=== PATIENT | female | born 1925 | race Caucasian/White ===

== ENCOUNTER 2017-06-09 17:29 | Emergency (ER) | payer OTHER ==
[~2017-06-09] VITALS: Ht 157.5 cm; Wt 67.1 kg
[2017-06-09 17:55] VITALS: BP_SYST 155
[2017-06-09 19:10] VITALS: BP_SYST 127
== END 2017-06-09 20:44 | disposition home or self-care (01) ==
LOC: SED 17:29
DX: S40.011A Contusion of right shoulder, initial encounter (principal); W01.0XXA Fall on same level from slipping, tripping and stumbling without subsequent striking against object, initial encounter; Y93.89 Activity, other specified; Y92.89 Other specified places as the place of occurrence of the external cause; Y99.8 Other external cause status
CPT/HCPCS: 70450-TC; 73030; 99284

== ENCOUNTER 2017-07-24 08:04 | Emergency (ER) | payer OTHER ==
[~2017-07-24] VITALS: Ht 157.5 cm; Wt 62.6 kg
[2017-07-24 08:04] VITALS: BP_SYST 155
[2017-07-24] MEDS ORDERED: IBUPROFEN 600 MG TABLET PO ONE (11:00)
[2017-07-24 11:07] VITALS: BP_SYST 132
== END 2017-07-24 11:07 | disposition home or self-care (01) ==
LOC: SED 08:04
DX: S93.401A Sprain of unspecified ligament of right ankle, initial encounter (principal); S00.83XA Contusion of other part of head, initial encounter; M25.561 Pain in right knee; I10 Essential (primary) hypertension; M19.90 Unspecified osteoarthritis, unspecified site; W18.30XA Fall on same level, unspecified, initial encounter; Y93.89 Activity, other specified; Y92.89 Other specified places as the place of occurrence of the external cause; Y99.8 Other external cause status
CPT/HCPCS: 70450-TC; 72170-TC; 73502; 73564; 99284